=== PATIENT | male | born 1955 | race Caucasian/White ===

== ENCOUNTER 2017-06-01 19:11 | Inpatient (IN) | payer OTHER, BC ==
[2017-06-01] MEDS ORDERED: Sodium Chloride 0.9% 10 ML Syringe FLUSH PRN ×2 (19:49→22:04)
[2017-06-01] MEDS ORDERED: Ondansetron 4 MG/2 ML SDV IVPUSH ONE (19:50)
[2017-06-01] MEDS ORDERED: HYDROmorphone 0.5 MG/0.5 ML Syringe IVPUSH ONE (19:51)
[2017-06-01] MEDS ORDERED: Sodium Chloride 0.9% 1,000 ML IV SCH (20:00)
--- NOTE | 2017-06-01 20:06 | EDM.PDOC ---
<Laci Sims - Last Filed: 06/02/17 01:28> ED HPI GENERAL MEDICAL PROBLEM - General Chief Complaint: Upper Extremity Injury/Pain Stated Complaint: FELL POSSIBLE BROKEN RIBS SENT FROM [facility] Time Seen by Provider: 06/01/17 19:40 - Related Data Allergies Allergy/AdvReac Type Severity Reaction Status Date / Time No Known Allergies Allergy Verified 08/03/14 17:02 Home Meds: Home Meds Losartan/Hydrochlorothiazide [Losartan-HCTZ 50-12.5 MG] 1 tab PO DAILY 06/01/17 [History] atorvaSTATin [Lipitor] 10 mg PO DAILY 06/01/17 [History] Course - Vital Signs Last Recorded V/S: Last Vital Signs Temp 98.2 F 06/02/17 19:26 Pulse 77 06/02/17 19:26 Resp 18 06/02/17 19:26 BP 130/84 06/02/17 19:26 Pulse Ox 92 L 06/02/17 19:26 - Orders/Labs/Meds Orders: Active Orders 24 hr Category Date Time Status Admission Status [Patient Status] [ADT] Routine ADT 06/02/17 01:21 Active Peripheral IV Insertion Adult [OM.PC] Stat Oth 06/01/17 19:49 Ordered Medication Orders Cyclobenzaprine HCl (Flexeril) 10 mg PO TID PRN PRN Reason: Pain Last Admin: 06/02/17 12:10 Dose: 10 mg Admin: 06/02/17 05:59 Dose: 10 mg Hydrochlorothiazide (Hydrochlorothiazide) 12.5 mg PO DAILY MARY KATE Last Admin: 06/02/17 09:15 Dose: 12.5 mg Hydromorphone HCl (Dilaudid) 0.5 - 1 mg IVPUSH Q2H PRN PRN Reason: Pain Last Admin: 06/02/17 05:58 Dose: 0.5 mg Admin: 06/02/17 02:14 Dose: 1 mg Losartan Potassium (Cozaar) 50 mg PO DAILY MARY KATE Last Admin: 06/02/17 09:16 Dose: 50 mg Oxycodone/Acetaminophen (Percocet 325-5 Mg) 1 tab PO Q4H PRN PRN Reason: Pain Last Admin: 06/02/17 15:24 Dose: 1 tab Admin: 06/02/17 10:59 Dose: 1 tab Simvastatin (Zocor) 10 mg PO BEDTIME MARY KATE Sodium Chloride (Saline Flush) 10 ml FLUSH ASDIRECTED PRN PRN Reason: Keep Vein Open Labs: Laboratory Tests 06/01/17 06/01/17 06/01/17 Range/Units 20:06 20:06 20:06 WBC (4.23-9.07) K/mm3 RBC (4.63-6.08) M/mm3 Hgb (13.7-17.5) gm/L Hct (40.1-51.0) % MCV (79.0-92.2) fl MCH (25.7-32.2) pg MCHC (32.2-35.5) g/dl RDW Std Deviation (35.1-43.9) fL Plt Count (163-337) K/mm3 MPV (9.4-12.3) fl Neut % (Auto) (34.0-67.9) % Lymph % (Auto) (21.8-53.1) % [place] % (Auto) (5.3-12.2) % Eos % (Auto) (0.8-7.0) Baso % (Auto) (0.1-1.2) % Neut # (Auto) (1.78-5.38) K/mm3 Lymph # (Auto) (1.32-3.57) K/mm3 Lim[place] # (Auto) (0.30-0.82) K/mm3 Eos # (Auto) (0.04-0.54) K/mm3 Baso # (Auto) (0.01-0.08) K/mm3 Manual Slide Review PT 11.4 (8.0-13.0) SECONDS INR 1.04 APTT 26 (22-36) SECONDS Sodium 132 L (136-145) mEq/L Potassium 3.5 (3.5-5.1) mEq/L Chloride 99 (98-107) mEq/L Carbon Dioxide 24 (21-32) mEq/L Anion Gap 12.5 (5-15) BUN 16 (7-18) mg/dL Creatinine 1.0 (0.7-1.3) mg/dL Est Cr Clr Drug Dosing 73.44 mL/min Estimated GFR (MDRD) > 60 (>60) mL/min BUN/Creatinine Ratio 16.0 (14-18) Glucose 140 H (74-106) mg/dL Calcium 8.9 (8.5-10.1) mg/dL Total Bilirubin 0.5 (0.2-1.0) mg/dL AST 54 H (15-37) U/L ALT 60 (16-63) U/L Alkaline Phosphatase 86 (46-116) U/L Total Protein 7.0 (6.4-8.2) g/dl Albumin 3.8 (3.4-5.0) g/dl Globulin 3.2 gm/dL Albumin/Globulin Ratio 1.2 (1-2) Blood Type O NEGATIVE Gel Antibody Screen Negative 06/01/17 Range/Units 20:06 WBC 17.93 H (4.23-9.07) K/mm3 RBC 4.92 (4.63-6.08) M/mm3 Hgb 15.8 (13.7-17.5) gm/L Hct 46.5 (40.1-51.0) % MCV 94.5 H (79.0-92.2) fl MCH 32.1 (25.7-32.2) pg MCHC 34.0 (32.2-35.5) g/dl RDW Std Deviation 44.0 H (35.1-43.9) fL Plt Count 225 (163-337) K/mm3 MPV 10.0 (9.4-12.3) fl Neut % (Auto) 83.1 H (34.0-67.9) % Lymph % (Auto) 7.5 L (21.8-53.1) % Limestone % (Auto) 8.5 (5.3-12.2) % Eos % (Auto) 0.5 L (0.8-7.0) Baso % (Auto) 0.1 (0.1-1.2) % Neut # (Auto) 14.90 H (1.78-5.38) K/mm3 Lymph # (Auto) 1.34 (1.32-3.57) K/mm3 Limestone # (Auto) 1.53 H (0.30-0.82) K/mm3 Eos # (Auto) 0.09 (0.04-0.54) K/mm3 Baso # (Auto) 0.02 (0.01-0.08) K/mm3 Manual Slide Review Normal smear PT (8.0-13.0) SECONDS INR APTT (22-36) SECONDS Sodium (136-145) mEq/L Potassium (3.5-5.1) mEq/L Chloride (98-107) mEq/L Carbon Dioxide (21-32) mEq/L Anion Gap (5-15) BUN (7-18) mg/dL Creatinine (0.7-1.3) mg/dL Est Cr Clr Drug Dosing mL/min Estimated GFR (MDRD) (>60) mL/min BUN/Creatinine Ratio (14-18) Glucose (74-106) mg/dL Calcium (8.5-10.1) mg/dL Total Bilirubin (0.2-1.0) mg/dL AST (15-37) U/L ALT (16-63) U/L Alkaline Phosphatase (46-116) U/L Total Protein (6.4-8.2) g/dl Albumin (3.4-5.0) g/dl Globulin gm/dL Albumin/Globulin Ratio (1-2) Blood Type Gel Antibody Screen Meds: Medications Generic Name Dose Route Start Last Admin Trade Name Freq PRN Reason Stop Dose Admin Cyclobenzaprine HCl 10 mg 06/02/17 01:54 06/02/17 12:10 Flexeril PO 10 mg TID PRN Administration Pain Hydrochlorothiazide 12.5 mg 06/02/17 09:00 06/02/17 09:15 Hydrochlorothiazide PO 12.5 mg DAILY MARY KATE Administration Hydromorphone HCl 0.5 - 1 mg 06/02/17 01:51 06/02/17 05:58 Dilaudid IVPUSH 0.5 mg Q2H PRN Administration Pain Losartan Potassium 50 mg 06/02/17 09:00 06/02/17 09:16 Cozaar PO 50 mg DAILY MARY KATE Administration Oxycodone/Acetaminophen 1 tab 06/02/17 07:55 06/02/17 15:24 Percocet 325-5 Mg PO 1 tab Q4H PRN Administration Pain Simvastatin 10 mg 06/02/17 21:00 Zocor PO BEDTIME MARY KATE Sodium Chloride 10 ml 06/02/17 07:54 Saline Flush FLUSH ASDIRECTED PRN Keep Vein Open Discontinued Medications Generic Name Dose Route Start Last Admin Trade Name Freq PRN Reason Stop Dose Admin Hydromorphone HCl 0.5 mg 06/01/17 19:51 06/01/17 20:03 Dilaudid IVPUSH 06/01/17 19:52 0.5 mg ONETIME ONE Administration Hydromorphone HCl 0.5 mg 06/01/17 23:10 06/01/17 23:16 Dilaudid IVPUSH 06/01/17 23:11 0.5 mg NOW STA Administration Hydromorphone HCl Confirm 06/01/17 23:17 06/01/17 23:16 Dilaudid Administered 06/01/17 23:18 Not Given Dose 0.5 mg .ROUTE .STK-MED ONE Hydromorphone HCl Confirm 06/02/17 02:05 06/02/17 05:53 Dilaudid Administered 06/02/17 02:06 Not Given Dose 1 mg .ROUTE .STK-MED ONE Sodium Chloride 1,000 mls @ 250 mls/hr 06/01/17 20:00 06/01/17 20:04 Normal Saline IV 250 mls/hr ASDIRECTED MARY KATE Administration Sodium Chloride 100 mls @ 65 mls/hr 06/01/17 22:15 06/01/17 22:15 Normal Saline IV 65 mls/hr ASDIRECTED MARY KATE Administration Sodium Chloride 1,000 mls @ 40 mls/hr 06/02/17 02:00 06/02/17 02:30 Normal Saline IV 40 mls/hr ASDIRECTED MARY KATE Administration Iopamidol 100 ml 06/01/17 22:04 06/01/17 22:15 Isovue-370 (76%) IVPUSH 06/01/17 22:05 100 ml ONETIME ONE Administration Iopamidol 100 ml 06/02/17 01:23 06/02/17 01:24 Isovue-300 (61%) IVPUSH 06/02/17 01:24 100 ml ONETIME ONE Administration Ondansetron HCl 4 mg 06/01/17 19:50 06/01/17 20:03 Zofran IVPUSH 06/01/17 19:51 4 mg ONETIME ONE Administration Sodium Chloride 10 ml 06/01/17 19:49 06/01/17 20:03 Saline Flush FLUSH 10 ml ASDIRECTED PRN Administration Keep Vein Open Sodium Chloride 10 ml 06/01/17 22:04 06/01/17 22:15 Saline Flush FLUSH 10 ml ONETIME PRN Administration IV FLUSH - Re-Assessments/Exams Free Text/Narrative Re-Assessment/Exam: 06/02/17 01:20 Case seemed from [facility]. CT of the abdomen and pelvis with IV contrast is read by [facility] as: 1. Right adrenal soft tissue mass 3.4 x 2.9 cm is most likely malignant. 2. 1.5 cm aortocaval lymph node, suspicious for malignancy. 3. No sign of solid or hollow visceral injury. 06/02/17 01:[address] Herrera at 01:25. We will proceed with the previous plan of admitting the patient for pain control, and Dr. Herrera will see the patient in the morning. Dr. Herrera will inform the patient of the likelihood of malignancy in the morning. Departure - Departure Disposition: Admitted As Inpatient 67 Clinical Impression: Multiple rib fractures involving four or more ribs, Pneumothorax on right - Discharge Information - My Orders Last 24 Hours: My Active Orders 06/01/17 19:49 Peripheral IV Insertion Adult [OM.PC] Stat 06/02/17 01:21 Admission Status [Patient Status] [ADT] Routine - Assessment/Plan Last 24 Hours: My Active Orders 06/01/17 19:49 Peripheral IV Insertion Adult [OM.PC] Stat 06/02/17 01:21 Admission Status [Patient Status] [ADT] Routine <WatersPaul O - Last Filed: 06/02/17 20:45> ED HPI GENERAL MEDICAL PROBLEM - General Source of Information: Reports: Patient History Limitations: Reports: No Limitations - History of Present Illness INITIAL COMMENTS - FREE TEXT/NARRATIVE: Patient is a 61-year-old male who presents to the ED complaining of right-sided upper thoracic back and lateral chest discomfort. He also has pain and swelling noted to the right clavicle. States he fell at approximately 2:00 pm today off a 4 foot trailer landing on his right side. There was no loss of consciousness. States he went to a local clinic in [place] for evaluation. Had x-ray of his clavicle and ribs obtained. States he has a right-sided clavicle fracture and also 7 rib fractures on the right side as well. He was instructed to come to the ED to have his lungs evaluated with concerns of having a pneumothorax. Patient continues have 10 out of 10 pain to his right upper back and lateral chest. He has taken ibuprofen 400 mg by mouth. He denies any pain along the spinal column. No numbness or tingling to his extremities, SOB, nausea/vomiting , abdominal pain, or any additional complaints. Right Back Pain Score (Numeric/FACES): 3 Past Medical History Cardiovascular History: Reports: High Cholesterol, Hypertension Social & Family History - Tobacco Use Smoking Status *Q: Current Every Day Smoker Years of Tobacco use: 25 Packs/Tins Daily: 0.5 - Caffeine Use Caffeine Use: Reports: Coffee, Tea - Alcohol Use Days Per Week of Alcohol Use: 0 - Recreational Drug Use Recreational Drug Use: No Review of Systems - Review of Systems Review Of Systems: ROS reveals no pertinent complaints other than HPI. ED EXAM, GENERAL - Physical Exam Exam: See Below Exam Limited By: No Limitations General Appearance: Alert, WD/WN, Moderate Distress (With movement and examination) Eye Exam: Bilateral Eye: PERRL Ears: Hearing Grossly Normal Nose: Normal Inspection, Normal Mucosa, No Blood Throat/Mouth: Normal Inspection, Normal Oropharynx, Normal Voice, No Airway Compromise Head: Atraumatic, Normocephalic Neck: Supple, Full Range of Motion, Other (Mild swelling noted to the base of the right neck with pinpoint tenderness noted. Chest just above the clavicle. Pulses are present with palpation. No ecchymosis noted.). No: Tender Lateral, Tender Midline Respiratory/Chest: No Respiratory Distress, Lungs Clear, Normal Breath Sounds, No Accessory Muscle Use, Other (Chest tenderness to the lateral aspect of the right chest with palpation.) Cardiovascular: Normal Peripheral Pulses, Regular Rate, Rhythm, No Murmur Peripheral Pulses: 2+: Radial (L), Radial (R) GI/Abdominal: Normal Bowel Sounds, Soft, Non-Tender, No Organomegaly, No Distention Back Exam: Normal Inspection, Decreased Range of Motion, Other (Pain is noted just to the inferior border of the). No: Paraspinal Tenderness (Pain is noted to the right lateral thoracic back.), Vertebral Tenderness Extremities: Normal Inspection, Normal Range of Motion, Non-Tender, No Pedal Edema, Normal Capillary Refill Neurological: Alert, Oriented, CN II-XII Intact, Normal Cognition, Normal Gait Psychiatric: Normal Affect, Normal Mood Skin Exam: Warm, Dry, Intact, Normal Color Course - Orders/Labs/Meds Labs: Laboratory Tests 06/01/17 06/01/17 06/01/17 Range/Units 20:06 20:06 20:06 WBC (4.23-9.07) K/mm3 RBC (4.63-6.08) M/mm3 Hgb (13.7-17.5) gm/L Hct (40.1-51.0) % MCV (79.0-92.2) fl MCH (25.7-32.2) pg MCHC (32.2-35.5) g/dl RDW Std Deviation (35.1-43.9) fL Plt Count (163-337) K/mm3 MPV (9.4-12.3) fl Neut % (Auto) (34.0-67.9) % Lymph % (Auto) (21.8-53.1) % [place]estone % (Auto) (5.3-12.2) % Eos % (Auto) (0.8-7.0) Baso % (Auto) (0.1-1.2) % Neut # (Auto) (1.78-5.38) K/mm3 Lymph # (Auto) (1.32-3.57) K/mm3 Limestone # (Auto) (0.30-0.82) K/mm3 Eos # (Auto) (0.04-0.54) K/mm3 Baso # (Auto) (0.01-0.08) K/mm3 Manual Slide Review PT 11.4 (8.0-13.0) SECONDS INR 1.04 APTT 26 (22-36) SECONDS Sodium 132 L (136-145) mEq/L Potassium 3.5 (3.5-5.1) mEq/L Chloride 99 (98-107) mEq/L Carbon Dioxide 24 (21-32) mEq/L Anion Gap 12.5 (5-15) BUN 16 (7-18) mg/dL Creatinine 1.0 (0.7-1.3) mg/dL Est Cr Clr Drug Dosing 73.44 mL/min Estimated GFR (MDRD) > 60 (>60) mL/min BUN/Creatinine Ratio 16.0 (14-18) Glucose 140 H (74-106) mg/dL Calcium 8.9 (8.5-10.1) mg/dL Total Bilirubin 0.5 (0.2-1.0) mg/dL AST 54 H (15-37) U/L ALT 60 (16-63) U/L Alkaline Phosphatase 86 (46-116) U/L Total Protein 7.0 (6.4-8.2) g/dl Albumin 3.8 (3.4-5.0) g/dl Globulin 3.2 gm/dL Albumin/Globulin Ratio 1.2 (1-2) Blood Type O NEGATIVE Gel Antibody Screen Negative 06/01/17 Range/Units 20:06 WBC 17.93 H (4.23-9.07) K/mm3 RBC 4.92 (4.63-6.08) M/mm3 Hgb 15.8 (13.7-17.5) gm/L Hct 46.5 (40.1-51.0) % MCV 94.5 H (79.0-92.2) fl MCH 32.1 (25.7-32.2) pg MCHC 34.0 (32.2-35.5) g/dl RDW Std Deviation 44.0 H (35.1-43.9) fL Plt Count 225 (163-337) K/mm3 MPV 10.0 (9.4-12.3) fl Neut % (Auto) 83.1 H (34.0-67.9) % Lymph % (Auto) 7.5 L (21.8-53.1) % Limestone % (Auto) 8.5 (5.3-12.2) % Eos % (Auto) 0.5 L (0.8-7.0) Baso % (Auto) 0.1 (0.1-1.2) % Neut # (Auto) 14.90 H (1.78-5.38) K/mm3 Lymph # (Auto) 1.34 (1.32-3.57) K/mm3 Limestone # (Auto) 1.53 H (0.30-0.82) K/mm3 Eos # (Auto) 0.09 (0.04-0.54) K/mm3 Baso # (Auto) 0.02 (0.01-0.08) K/mm3 Manual Slide Review Normal smear PT (8.0-13.0) SECONDS INR APTT (22-36) SECONDS Sodium (136-145) mEq/L Potassium (3.5-5.1) mEq/L Chloride (98-107) mEq/L Carbon Dioxide (21-32) mEq/L Anion Gap (5-15) BUN (7-18) mg/dL Creatinine (0.7-1.3) mg/dL Est Cr Clr Drug Dosing mL/min Estimated GFR (MDRD) (>60) mL/min BUN/Creatinine Ratio (14-18) Glucose (74-106) mg/dL Calcium (8.5-10.1) mg/dL Total Bilirubin (0.2-1.0) mg/dL AST (15-37) U/L ALT (16-63) U/L Alkaline Phosphatase (46-116) U/L Total Protein (6.4-8.2) g/dl Albumin (3.4-5.0) g/dl Globulin gm/dL Albumin/Globulin Ratio (1-2) Blood Type Gel Antibody Screen - Re-Assessments/Exams Free Text/Narrative Re-Assessment/Exam: IV established with blood work obtained. IV established with normal saline, Dilaudid 0.5 mg IVP, and Zofran 4 mg IVP. Initial labs and studies include CBC, chem 14, coag status, type and screen, and CT angio of the chest and neck. Labs reviewed: Elevated white blood cell count with left shift most likely as a result of stress response with recent fall and rib fractures. Patient does not have any obvious infectious concerns at this point. She panel is mildly elevated with minimal increase in AST. [id number] [facility] Has contacted me and shared results of the CT of the chest with IV contrast. Impression: 1.3 cm right pneumothorax. Nondisplaced fracture of the right first, second, third, fourth ribs. Nondisplaced left first rib fracture also. Minimally displaced superior endplate fractures at T3 and T4. Right suprarenal mass like area measuring up to 3.4 cm with some adjacent stranding of fat. This could be hematoma and/or metastases. CTA of the neck: Negative CTA neck. Shared results of the CT of the chest with the patient. He denies any history of cancer. States his PSA is elevated and is suppose to have further evaluation this coming June. States his mom from some form of abdominal cancer. On reexamination, patient has no pain to the abdomen. [id number] of the chest with Dr. Herrera on-call general surgeon. He requested CT the abdomen and pelvis be obtained to ensure the mass to the the kidney that may be a hematoma is not actively bleeding. Spoke with radiology and they state they cannot give the patient any more IV contrast this evening. If he did it would be an inadequate test with all the contrast at already present. Edy suggested obtaining a CT of the abdomen and pelvis without contrast. If a hematoma and/or active bleeding within the abdomen should light up with the contrast already present. CT the abdomen and pelvis without IV contrast has been ordered. 1113 Patient is complaining of pain. Additional 0.5 mg of Dilaudid IVP ordered. 06/02/17 00:28 Due to the delay of obtaining CT of the abdomen and pelvis wo contrast in a timely manner due to another patient needing CT studies. Edy with radiology believes the contrast previously administered will be inaffective at this point. States he can inject contrast again. Will procede will CT of the abdomen and pelvis with IV contrast. 06/02/17 00:[address] Sims he will be taking over care since it is my end of shift. Bridge orders per Dr. Bosch have been completed. He will be notified of the results of CT abdomen and pelvis prior to admission. Departure - Departure Time of Disposition: 01:21 Condition: Fair
[2017-06-01] MEDS ORDERED: Iopamidol 755 Mg/ML 100 ML Bottle IVPUSH ONE (22:04)
[2017-06-01] MEDS ORDERED: Sodium Chloride 0.9% 100 ML IV SCH (22:15)
[2017-06-01] MEDS ORDERED: HYDROmorphone 0.5 MG/0.5 ML Syringe IVPUSH STA (23:10)
[2017-06-01] MEDS ORDERED: HYDROmorphone 0.5 MG/0.5 ML Syringe ONE (23:17)
[2017-06-02] MEDS ORDERED: Iopamidol 612 MG/ML 100 ML Bottle IVPUSH ONE (01:23)
[2017-06-02] MEDS ORDERED: Sodium Chloride 0.9% 1,000 ML IV SCH (02:00)
[2017-06-02] MEDS ORDERED: HYDROmorphone 1 MG/ML Syringe ONE (02:05)
[2017-06-02] MEDS: HYDROmorphone 0.5 MG/0.5 ML Syringe IVPUSH PRN ×2 (02:14→05:58)
[2017-06-02] MEDS: Cyclobenzaprine 10 MG Tab PO PRN ×2 (05:59→12:10)
--- NOTE | 2017-06-02 07:07 | CT ---
CT chest Technique: Multiple axial sections were obtained from above the lung apices inferiorly through the lung bases. Intravenous contrast was utilized. Comparison: No previous chest imaging. Findings: Mediastinum and hilar regions appear within normal limits. No pericardial thickening is seen. No axillary adenopathy is seen. Small pneumothorax is identified anteriorly. Small pleural air collections are also seen posteriorly. Pneumothorax measures less than 10%. Mild dependent atelectasis is seen posteriorly within both lungs. Lungs otherwise are clear. Bone window settings were reviewed which show subacute and incompletely healed rib fractures within the seventh and eighth ribs on the right side. Acute and basically nondisplaced rib fractures are seen within the right first, second, third, fourth rib and fifth ribs. Minimal deformity felt compatible with a nondisplaced fracture also seen within the left first rib. Mild endplate compression deformities are seen superiorly within T3 and T4 which are felt to be acute. No abnormal subluxation is seen. Right adrenal mass is seen which will be described on subsequent CT abdomen and pelvis study. Impression: 1. Acute fractures within the first through fifth right ribs and first left rib. Subacute nonhealed fractures are seen within the right seventh and eighth ribs. 2. Small pneumothorax on the right side. 3. Minimal superior endplate compression deformities within T3 and T4. Diagnostic code #5 Agree with preliminary report issued by [facility] ([facility] preliminary report dictated on 06/01/17, 11:31 PM Central Time)
--- NOTE | 2017-06-02 07:14 | CT ---
CT neck Technique: Multiple axial sections through the neck were obtained. Intravenous contrast was utilized. Study was performed as a CT neck angiogram protocol. Multiple MIP images were obtained. Findings: Minimal calcified plaque is seen within the carotid bulb and proximal internal carotid arteries. Common carotid arteries are patent. No dissection or occlusion is seen. No stenosis is seen. Internal and visualized external carotid arteries: No dissection or occlusion is seen. Vertebral arteries: No dissection or stenosis is seen. Patency into the basilar artery is noted. Visualized sinuses are clear. Parotid salivary glands are within normal limits. Soft tissue swelling/hematoma noted anteriorly within the region around the clavicle. Nondisplaced fracture noted within the right clavicle in this region. Diffuse disc space narrowing as well as posterior and anterior osteophytes are seen within the cervical spine. Impression: 1. Nondisplaced right clavicle fracture with adjacent soft tissue swelling/hematoma. 2. Minimal calcified plaque within the carotid bulbs and proximal internal carotid arteries. 3. Other incidental findings as noted above. Diagnostic code #3 Agree with preliminary report issued by [facility] ([facility] preliminary report dictated on 06/01/17, 11:31 PM Central Time)
--- NOTE | 2017-06-02 07:22 | CT ---
CT abdomen and pelvis Technique: Multiple axial sections were obtained from above the dome of the diaphragm inferiorly to the pubic symphysis. Intravenous contrast was utilized. Delayed images were also obtained through the abdomen and pelvis. Findings: Small low-density finding is identified within the dome of the liver which is felt compatible with incidental cyst measuring about 8 mm. No additional abnormality is seen within the liver. Spleen appears within normal limits. Kidneys show symmetric contrast enhancement without hydronephrosis or mass. No renal laceration is seen. Delayed images show contrast excretion into the ureters and bladder without extravasation. Right adrenal mass is identified. This measures about 3.0 cm in size and shows surrounding inflammatory-type change. Findings most likely due to adrenal hemorrhage. Left adrenal gland is unremarkable. Pancreas is normal. Gallbladder shows no calcified gallstones. Aorta contains atherosclerotic plaque which continues into the iliac vessels. No aneurysm is identified. Small lymph node is seen within the retroperitoneum measuring about 1.5 cm which is likely incidental. No pelvic mass or adenopathy is seen. Bone window settings show scattered degenerative change within the spine. Impression: 1. Right adrenal mass with surrounding increased density. Findings most likely due to adrenal hemorrhage. Adrenal malignancy is within the differential. MRI could be considered which should show changes of hemorrhage if first etiology is correct. 2. Small retroperitoneal lymph node measuring within normal limits at this time. 3. Other incidental findings. Diagnostic code #5 Agree with preliminary report issued by [facility] ([facility] preliminary report dictated on 06/02/17, 1:59 AM Central Time)
[2017-06-02] MEDS ORDERED: Sodium Chloride 0.9% 10 ML Syringe FLUSH PRN (07:54)
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
--- NOTE | 2017-06-02 09:08 | CR ---
Chest: Two views of the chest are obtained. Comparison: No prior chest x-ray, prior chest CT dated 06/01/17. Heart size and mediastinum are within normal limits. Right-sided rib fractures are seen which appear acute within the right upper chest and subacute with callus within the right lower chest. Heart size and mediastinum are normal. Previous shoulder surgery is seen. Nondisplaced right clavicle fracture is noted. Minimal anterior wedging is seen within several upper thoracic vertebral bodies which is stable. Impression: 1. Right-sided rib fractures as described above. No pneumothorax is definitely appreciated on current study. 2. Right clavicle fracture and 2 minimal anterior wedge deformities within the upper thoracic spine. 3. No acute parenchymal densities are seen. Diagnostic code #3
[2017-06-02] MEDS: Hydrochlorothiazide 12.5 MG Cap PO SCH (09:15)
[2017-06-02] MEDS: Losartan 25 MG Tab PO SCH (09:16)
[2017-06-02] MEDS: Acetaminophen/oxyCODONE 325-5 MG Tab PO PRN ×3 (10:59→21:05)
[2017-06-02] MEDS ORDERED: Simvastatin 10 MG Tab PO SCH (21:00)
[2017-06-03] MEDS: Acetaminophen/oxyCODONE 325-5 MG Tab PO PRN ×3 (02:40→11:51)
[2017-06-03] MEDS ORDERED: Magnesium Citrate Solution 296 ML Bottle PO ONE (07:24)
--- NOTE | 2017-06-03 07:31 | PCM.PN ---
- General Info Date of Service: 06/03/17 Functional Status: Reports: Pain Controlled, Tolerating Diet, Ambulating, Urinating - Review of Systems Pulmonary: Reports: Pleuritic Chest Pain, Other (Complains of right chest wall pain with coughing and deep breathing and movement) - Patient Data Vitals - Most Recent: Last Vital Signs Temp 36.8 C 06/03/17 02:42 Pulse 82 06/03/17 02:42 Resp 18 06/03/17 02:42 BP 106/91 H 06/03/17 02:43 Pulse Ox 95 06/03/17 02:42 Weight - Most Recent: 73.981 kg I&O - Last 24 Hours: Intake & Output 06/02/17 06/03/17 06/03/17 22:59 06:59 14:59 Intake Total 800 400 Output Total 500 600 Balance 300 -200 Med Orders - Current: Current Medications Cyclobenzaprine HCl (Flexeril) 10 mg PO TID PRN PRN Reason: Pain Last Admin: 06/02/17 12:10 Dose: 10 mg Hydrochlorothiazide (Hydrochlorothiazide) 12.5 mg PO DAILY [facility] Last Admin: 06/02/17 09:15 Dose: 12.5 mg Hydromorphone HCl (Dilaudid) 0.5 - 1 mg IVPUSH Q2H PRN PRN Reason: Pain Last Admin: 06/02/17 05:58 Dose: 0.5 mg Losartan Potassium (Cozaar) 50 mg PO DAILY [facility] Last Admin: 06/02/17 09:16 Dose: 50 mg Magnesium Citrate (Citrate Of Magnesia) 0 ml PO ONETIME ONE Stop: 06/03/17 07:25 Oxycodone/Acetaminophen (Percocet 325-5 Mg) 1 tab PO Q4H PRN PRN Reason: Pain Last Admin: 06/03/17 02:40 Dose: 1 tab Simvastatin (Zocor) 10 mg PO BEDTIME [facility] Last Admin: 06/02/17 21:04 Dose: 10 mg Sodium Chloride (Saline Flush) 10 ml FLUSH ASDIRECTED PRN PRN Reason: Keep Vein Open Discontinued Medications Hydromorphone HCl (Dilaudid) 0.5 mg IVPUSH ONETIME ONE Stop: 06/01/17 19:52 Last Admin: 06/01/17 20:03 Dose: 0.5 mg Hydromorphone HCl (Dilaudid) 0.5 mg IVPUSH NOW STA Stop: 06/01/17 23:11 Last Admin: 06/01/17 23:16 Dose: 0.5 mg Hydromorphone HCl (Dilaudid) Confirm Administered Dose 0.5 mg .ROUTE .STK-MED ONE Stop: 06/01/17 23:18 Last Admin: 06/01/17 23:16 Dose: Not Given Hydromorphone HCl (Dilaudid) Confirm Administered Dose 1 mg .ROUTE .STK-MED ONE Stop: 06/02/17 02:06 Last Admin: 06/02/17 05:53 Dose: Not Given Sodium Chloride (Normal Saline) 1,000 mls @ 250 mls/hr IV ASDIRECTED [facility] Last Admin: 06/01/17 20:04 Dose: 250 mls/hr Sodium Chloride (Normal Saline) 100 mls @ 65 mls/hr IV ASDIRECTED [facility] Last Admin: 06/01/17 22:15 Dose: 65 mls/hr Sodium Chloride (Normal Saline) 1,000 mls @ 40 mls/hr IV ASDIRECTED [facility] Last Admin: 06/02/17 02:30 Dose: 40 mls/hr Iopamidol (Isovue-370 (76%)) 100 ml IVPUSH ONETIME ONE Stop: 06/01/17 22:05 Last Admin: 06/01/17 22:15 Dose: 100 ml Iopamidol (Isovue-300 (61%)) 100 ml IVPUSH ONETIME ONE Stop: 06/02/17 01:24 Last Admin: 06/02/17 01:24 Dose: 100 ml Ondansetron HCl (Zofran) 4 mg IVPUSH ONETIME ONE Stop: 06/01/17 19:51 Last Admin: 06/01/17 20:03 Dose: 4 mg Sodium Chloride (Saline Flush) 10 ml FLUSH ASDIRECTED PRN PRN Reason: Keep Vein Open Last Admin: 06/01/17 20:03 Dose: 10 ml Sodium Chloride (Saline Flush) 10 ml FLUSH ONETIME PRN PRN Reason: IV FLUSH Last Admin: 06/01/17 22:15 Dose: 10 ml - Exam General: Alert, Oriented, Cooperative GI/Abdominal Exam: Soft, Non-Tender - Problem List & Annotations (1) Adrenal incidentaloma SNOMED Code(s): 378952774 Code(s): E27.8 - OTHER SPECIFIED DISORDERS OF ADRENAL GLAND Status: Chronic Priority: Low Current Visit: Yes Annotation/Comment:: Perhaps hemorrhagic. Functional status unknown at this time. This will need to be evaluated. (2) Compression fracture SNOMED Code(s): 647576520 Code(s): SDH0824 - Status: Acute Priority: Low Current Visit: Yes (3) Localized soft tissue swelling SNOMED Code(s): 374714262 Code(s): R22.9 - LOCALIZED SWELLING, MASS AND LUMP, UNSPECIFIED Status: Acute Priority: Low Current Visit: Yes (4) Multiple rib fractures involving four or more ribs SNOMED Code(s): 8525655 Code(s): S22.49XA - MULTIPLE FRACTURES OF RIBS, UNSP SIDE, INIT FOR CLOS FX Status: Acute Priority: Medium Current Visit: Yes (5) Pneumothorax on right SNOMED Code(s): 992038995 Code(s): J93.9 - PNEUMOTHORAX, UNSPECIFIED Status: Acute Priority: Low Current Visit: Yes - Problem List Review Problem List Initiated/Reviewed/Updated: Yes - My Orders Last 24 Hours: My Active Orders 06/02/17 07:54 Sodium Chloride 0.9% [Saline Flush] 10 ml FLUSH ASDIRECTED PRN Convert IV to Saline Lock [OM.PC] Routine 06/02/17 07:55 Incentive Spirometry [RT Incentive Spirometry] [RC] ASDIRECTED Acetaminophen/oxyCODONE [Percocet 325-5 MG] 1 tab PO Q4H PRN 06/02/17 07:57 Oxygen Therapy [RC] CONTINUOUS 06/02/17 07:58 Activity as Tolerated [RC] .Routine PT Evaluation and Treatment [CONS] Routine 06/02/17 07:59 Antiembolic Devices [RC] QSHIFT May Shower [RC] ASDIRECTED ALF Hose [Antiembolic Hose] [OM.PC] Routine 06/02/17 08:00 Assess Discharge Needs [OM.PC] Routine 06/02/17 09:00 Hydrochlorothiazide 12.5 mg PO DAILY Hydrochlorothiazide 12.5 mg PO DAILY Losartan [Cozaar] 50 mg PO DAILY 06/02/17 21:00 Simvastatin [Zocor] 10 mg PO BEDTIME 06/02/17 Lunch Regular Diet [DIET] 06/03/17 07:05 ALDOSTERONE [REF] Routine 06/03/17 07:06 ACTH [REF] Routine CORTISOL [REF] Routine 06/03/17 07:07 METANEPHRINES, PLASMA FREE [REF] Routine 06/03/17 07:24 Magnesium Citrate [Citrate of Magnesia] See Dose Instructions PO ONETIME ONE - Assessment Assessment:: Pain management was satisfactorily with Percocet. Stable vital signs. Chest x- ray stable. Hemoglobin is stable as well. Patient satisfies discharge criteria. - Plan Plan:: Discharge today. Follow-up with Dr. Salguero and follow-up with Dr. Rose. He can follow-up with me when necessary for the rib fractures. Serum aldosterone, ACTH, serum cortisol and serum metanephrines ordered. Patient will need follow-up CT scan for the adrenal incidentaloma in 6 months.
[2017-06-03] MEDS: HYDROmorphone 0.5 MG/0.5 ML Syringe IVPUSH PRN (07:42)
[2017-06-03] MEDS: Cyclobenzaprine 10 MG Tab PO PRN (07:44)
[2017-06-03] MEDS: Losartan 25 MG Tab PO SCH (08:50)
[2017-06-03 08:51] VITALS: BP 122/85
[2017-06-03] MEDS: Hydrochlorothiazide 12.5 MG Cap PO SCH (08:51)
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
== END 2017-06-03 12:05 | disposition home or self-care (01) | DRG 200 ==
LOC: SUPCPDRO 19:11 → JD.ED 19:11 → JD.MS 06-02 01:22
PROVIDERS: ADMIT Surgery; ATTEND Surgery
DX: S27.0XXA Traumatic pneumothorax, initial encounter (principal); S22.41XA Multiple fractures of ribs, right side, initial encounter for closed fracture; S22.039A Unspecified fracture of third thoracic vertebra, initial encounter for closed fracture; S22.049A Unspecified fracture of fourth thoracic vertebra, initial encounter for closed fracture; E27.8 Other specified disorders of adrenal gland; R22.9 Localized swelling, mass and lump, unspecified; W17.89XA Other fall from one level to another, initial encounter; I10 Essential (primary) hypertension; E78.00 Pure hypercholesterolemia, unspecified; Z96.659 Presence of unspecified artificial knee joint; Z96.619 Presence of unspecified artificial shoulder joint; F17.210 Nicotine dependence, cigarettes, uncomplicated; Z79.899 Other long term (current) drug therapy
CPT/HCPCS: 36415; 70498; 70498-26; 71020; 71020-26; 71260; 71260-26; 74177; 74177-26; 80053; 82024; 82088; 82533; 83835; 85025; 85610; 85730; 86850; 86900; 86901; 96361; 96374; 96375; 96376; 97116-GP; 97162-GP; 97530-GP; 99284; 99285-25; A9270-GY; J1170; J2405; J7030; J7040; J7050; Q9967

== ENCOUNTER 2017-06-10 21:51 | Emergency (ER) | payer BC, OTHER ==
[2017-06-10 22:07] VITALS: BP 116/75
--- NOTE | 2017-06-10 22:30 | EDM.PDOC ---
ED HPI GENERAL MEDICAL PROBLEM - General Chief Complaint: Upper Extremity Injury/Pain Stated Complaint: POSS SHOULDER INJURY Time Seen by Provider: 06/10/17 22:07 Source of Information: Reports: Patient History Limitations: Reports: No Limitations - History of Present Illness INITIAL COMMENTS - FREE TEXT/NARRATIVE: This is a 61-year-old male. He was seen in the ER on the sixth due to a fall. He had rib fractures on the right 1 through 5 and rib fracture on the left #1 he also had compression fractures of T3 and T4 with anterior wedging. He had a less than 10% pneumothorax on the right. He also had a right clavicle fracture. He was also noted to have a right adrenal mass for maybe to be due to hemorrhage. He saw Dr. Powell today and doesn't really tell me much about what was said or how long it would take him to heal. He has been trying to use that right arm and says it kills his shoulder when he tries to use it. He now has a bunch of bruising and various shades of discoloration around the right clavicle and the right upper chest area. I explained to the patient that he has fractured his clavicle and any movement of that right arm is going to cause severe pain and limit his movement. He apparently is supposed to be in a sling but he has not been wearing it. He says his ribs are feeling better and he seems to be breathing okay. He comes back to the ER because of the right shoulder pain. He states he took a Percocet but it isn't really helping. Right Shoulder Pain Score (Numeric/FACES): 10 - Related Data Allergies Allergy/AdvReac Type Severity Reaction Status Date / Time No Known Allergies Allergy Verified 08/03/14 17:02 Home Meds: Home Meds Losartan/Hydrochlorothiazide [Losartan-HCTZ 50-12.5 MG] 1 tab PO DAILY 06/01/17 [History] atorvaSTATin [Lipitor] 10 mg PO DAILY 06/01/17 [History] oxyCODONE HCl/Acetaminophen [Percocet 5-325 mg Tablet] 1 - 2 each PO Q6HR PRN [History] Past Medical History Cardiovascular History: Reports: High Cholesterol, Hypertension Musculoskeletal History: Reports: Other (See Below) Other Musculoskeletal History: left acl repair; fractured collar bone and ribs on the right side - Infectious Disease History Infectious Disease History: Reports: Chicken Pox - Past Surgical History HEENT Surgical History: Reports: Tonsillectomy GI Surgical History: Reports: Appendectomy Musculoskeletal Surgical History: Reports: Knee Replacement, Shoulder Replacement, Shoulder Surgery Other Musculoskeletal Surgeries/Procedures:: R shoulder 2012, L shoulder 2016, LTK-2015 Social & Family History - Family History Family Medical History: Noncontributory - Tobacco Use Smoking Status *Q: Current Every Day Smoker Years of Tobacco use: 20 Packs/Tins Daily: 10 Used Tobacco, but Quit: Yes Month Tobacco Last Used: 06/12 Second Hand Smoke Exposure: No - Caffeine Use Caffeine Use: Reports: Coffee - Alcohol Use Days Per Week of Alcohol Use: 0 Number of Drinks Per Day: 0 Total Drinks Per Week: 0 - Recreational Drug Use Recreational Drug Use: No Review of Systems - Review of Systems Review Of Systems: See Below Constitutional: Denies: Chills, Fever Eyes: Reports: No Symptoms Ears: Reports: No Symptoms Nose: Reports: No Symptoms Mouth/Throat: Reports: No Symptoms Respiratory: Reports: Pleuritic Chest Pain Cardiovascular: Reports: No Symptoms GI/Abdominal: Reports: No Symptoms Genitourinary: Reports: No Symptoms Musculoskeletal: Reports: Other (As per history of present illness) Skin: Reports: Other (As per history of present illness) Neurological: Reports: No Symptoms Psychiatric: Reports: No Symptoms ED EXAM, GENERAL - Physical Exam Exam: See Below Exam Limited By: No Limitations General Appearance: Alert, WD/WN, No Apparent Distress Eye Exam: Bilateral Eye: Normal Inspection Ears: Normal External Exam Nose: Normal Inspection Throat/Mouth: Normal Inspection, Normal Lips, Normal Voice, No Airway Compromise Head: Normocephalic Neck: Supple Respiratory/Chest: No Respiratory Distress, Lungs Clear, Other (He appears to have equal breath sounds in the right and left and does not appear to be splinting, his right clavicle is very tender, he has obvious bruising around the clavicle and the right upper chest area, palpation of his ribs they are bull ladle tender) Cardiovascular: Regular Rate, Rhythm, No Murmur GI/Abdominal: Soft Back Exam: Normal Inspection Extremities: Other (Right shoulder has limited range of motion due to the clavicle pain, the right shoulder appears to be in the glenoid fossa, I did not put him through the range of motion due to the pain) Neurological: Alert, Oriented Psychiatric: Normal Affect, Normal Mood Skin Exam: Warm, Dry Course - Vital Signs Last Recorded V/S: Last Vital Signs Temp 98.3 F 06/10/17 22:05 Pulse 80 06/10/17 22:05 Resp 20 06/10/17 22:05 BP 116/75 06/10/17 22:05 Pulse Ox 95 06/10/17 22:05 - Orders/Labs/Meds Orders: Active Orders 24 hr Category Date Time Status Communication Order [RC] STAT Care 06/10/17 22:58 Ordered Chest 2V [CR] Stat Exams 06/10/17 22:23 Taken Shoulder Comp Rt [CR] Stat Exams 06/10/17 22:24 Taken - Radiology Interpretation Free Text/Narrative:: Chest x-ray does not show any increasing pneumothorax, he does have a mild pleural effusion in the right base of the long but the rest of the lungs look fairly clear, seen R some rib fractures and the right clavicle fracture that was seen last time as well, the right shoulder does not show any humerus or glenoid fossa fractures he does have that right clavicle fracture that is overriding shaft in the middle. - Re-Assessments/Exams Free Text/Narrative Re-Assessment/Exam: 06/10/17 23:00 I spoke to the patient regarding his x-ray results and I showed him the right clavicle with the Invanz overriding each other and every time he tries to use that right shoulder he moves that clavicle fracture and causes pain and he needs to be in a sling is up but he may take it off at night when he sleeps. I cautioned him with gentle activity to help these ribs heal and to follow-up with Dr. Powell as scheduled. Departure - Departure Time of Disposition: 23:01 Disposition: Home, Self-Care 01 Condition: Fair Clinical Impression: Multiple fractures of ribs, right side, subsequent encounter for fracture with delayed healing, Pleural effusion, right Closed right clavicular fracture Qualifiers: Encounter type: initial encounter Clavicle location: shaft Fracture alignment: displaced Qualified Code(s): S42.021A - Displaced fracture of shaft of right clavicle, initial encounter for closed fracture Sprain of right shoulder Qualifiers: Encounter type: initial encounter Shoulder sprain type: unspecified sprain Qualified Code(s): S43.401A - Unspecified sprain of right shoulder joint, initial encounter Contusion of lung Qualifiers: Encounter type: initial encounter Laterality: right Qualified Code(s): S27.321A - Contusion of lung, unilateral, initial encounter - Discharge Information Referrals: Jakub Bruno MD [Primary Care Provider] - Polo Powell MD [Physician] - Forms: ED Department Discharge Additional Instructions: Use the sling at all times when you were up and moving around, this allows the clavicle to stay in one place and begin to heal rather than moving when you're trying to move your right arm, take the medicines as needed for pain, gentle activity due to the right rib fractures, follow-up with Dr. Powell as scheduled, return to the ER if needed - My Orders Last 24 Hours: My Active Orders 06/10/17 22:23 Chest 2V [CR] Stat 06/10/17 22:24 Shoulder Comp Rt [CR] Stat 06/10/17 22:58 Communication Order [RC] STAT - Assessment/Plan Last 24 Hours: My Active Orders 06/10/17 22:23 Chest 2V [CR] Stat 06/10/17 22:24 Shoulder Comp Rt [CR] Stat 06/10/17 22:58 Communication Order [RC] STAT
--- NOTE | 2017-06-13 08:33 | CR ---
Chest: Two views of the chest were obtained. Comparison: Prior chest x-ray of 06/02/17. Heart size and mediastinum are within normal limits. Small right sided pleural effusion/thickening is seen. Lungs otherwise are clear. Previous right shoulder surgery is noted. Multiple right-sided rib fractures are seen which are subacute in nature. Stable right clavicle fracture is also noted. Impression: 1. Small nonspecific right sided pleural effusion, this may also represent development of pleural thickening from previous rib fractures. 2. Right clavicle fracture which is stable. Other incidental notes. Diagnostic code #3
--- NOTE | 2017-06-13 08:33 | CR ---
Right shoulder: Three views of the right shoulder were obtained. Multiple subacute right-sided rib fracture. Clavicle fracture is noted which is also stable. Glenohumeral joint appears within normal limits. Acromioclavicular joint appears within normal limits. Prior surgery is noted. Impression: 1. Subacute right-sided rib fractures and subacute right clavicle fracture. 2. Prior surgery within the humeral head. 3. Nothing acute is seen on right shoulder study. Diagnostic code #3
== END 2017-06-10 23:13 | disposition home or self-care (01) ==
LOC: JD.ED 21:51
DX: S42.021A Displaced fracture of shaft of right clavicle, initial encounter for closed fracture (principal); S27.321A Contusion of lung, unilateral, initial encounter; S22.41XG Multiple fractures of ribs, right side, subsequent encounter for fracture with delayed healing; J90 Pleural effusion, not elsewhere classified; I10 Essential (primary) hypertension; F17.210 Nicotine dependence, cigarettes, uncomplicated; E78.00 Pure hypercholesterolemia, unspecified; Z79.899 Other long term (current) drug therapy; W17.89XA Other fall from one level to another, initial encounter
CPT/HCPCS: 71020; 71020-26; 73030-26-RT; 73030-RT; 99283

== ENCOUNTER 2022-07-14 06:08 | Day surgery (SDC) | payer MEDICARE, OTHER ==
[~2022-07-14 06:08] MED LIST: Acetaminophen 325 MG Tab PO SCH; Lactated Ringers 1,000 ML IV SCH; Lidocaine 1%/Sod Bicarbonate in NS 8.4% 1 ML Syringe IDERM PRN; Pregabalin 25 MG Cap PO SCH; Sodium Chloride 0.9% 10 ML Syringe FLUSH PRN; Sodium Chloride 0.9% 10 ML Syringe FLUSH SCH; oxyCODONE ER 10 MG TAB.ER PO SCH
[2022-07-14] MEDS ORDERED: Vancomycin 1 GM SDV ONE (06:48)
[2022-07-14] MEDS ORDERED: Tranexamic Acid 1,000 MG/10 ML Vial ONE (06:48)
[2022-07-14 07:12] VITALS: BP 137/101; PULSE 85
== END 2022-07-14 07:07 | disposition home or self-care (01) ==
LOC: JD.SDS 06:08
PROVIDERS: ATTEND Orthopaedic Surgery
DX: Z53.09 Procedure and treatment not carried out because of other contraindication (principal)
CPT/HCPCS: A9270; J7120; J3370; J3490

== ENCOUNTER 2022-07-19 09:25 | Day surgery (SDC) | payer MEDICARE, OTHER ==
[2022-07-19] MEDS ORDERED: Dexmedetomidine 200 MCG/2 ML SDV ONE (09:38)
[2022-07-19] MEDS ORDERED: EPINEPHrine 1 MG/ML SDV ONE (09:41)
[2022-07-19] MEDS ORDERED: Ropivacaine 0.5% 5 MG/ML 30 ML SDV ONE (09:41)
[2022-07-19] MEDS ORDERED: Tranexamic Acid 1,000 MG/10 ML Vial ONE (09:47)
[2022-07-19] MEDS ORDERED: Vancomycin 1 GM SDV ONE (09:47)
[2022-07-19] MEDS ORDERED: Midazolam 1 MG/ML 2 ML SDV ONE (09:55)
[2022-07-19] MEDS ORDERED: fentaNYL 100 MCG/2 ML SDV ONE ×2 (09:56→11:10)
[2022-07-19] MEDS ORDERED: Lidocaine 1% 4 ML ONE (10:24)
[2022-07-19] MEDS ORDERED: Propofol 200 MG/20 ML SDV ONE (10:24)
[2022-07-19] MEDS ORDERED: ceFAZolin 2 GM Vial ONE (10:24)
[2022-07-19] MEDS ORDERED: Rocuronium 50 MG/5 ML Vial ONE (10:24)
[2022-07-19] MEDS ORDERED: Ketorolac 30 MG/ML SDV ONE (10:25)
[2022-07-19] MEDS ORDERED: Ondansetron 4 MG/2 ML SDV ONE (10:25)
[2022-07-19] MEDS ORDERED: HYDROmorphone 0.5 MG/0.5 ML Syringe ONE (11:10)
[2022-07-19] MEDS ORDERED: Lactated Ringers 1,000 ML ONE (11:33)
[2022-07-19] MEDS ORDERED: Acetaminophen/HYDROcodone 325-5 MG Tab PO PRN (13:33)
[2022-07-19] MEDS ORDERED: HYDROmorphone 0.5 MG/0.5 ML Syringe IVPUSH PRN (13:46)
[2022-07-19] MEDS ORDERED: fentaNYL 100 MCG/2 ML SDV IVPUSH PRN (13:46)
[2022-07-19] MEDS ORDERED: Ondansetron 4 MG/2 ML SDV IVPUSH PRN (13:46)
[2022-07-19 16:08] VITALS: BP 120/74; PULSE 80
== END 2022-07-19 16:03 | disposition home or self-care (01) ==
LOC: JD.SDS 09:25
PROVIDERS: ATTEND Orthopaedic Surgery
DX: M19.012 Primary osteoarthritis, left shoulder (principal); I10 Essential (primary) hypertension; E78.00 Pure hypercholesterolemia, unspecified; F41.9 Anxiety disorder, unspecified; Z98.890 Other specified postprocedural states; Z87.891 Personal history of nicotine dependence; Z79.899 Other long term (current) drug therapy; Z79.82 Long term (current) use of aspirin
CPT/HCPCS: 23472; 64415; 73020; 76000; 97166; 97530; A9270; C1713; C1769; C1776; J0171; J0690; J1170; J1885; J2250; J2405; J2704; J2795; J3010; J3370; J7120; 01638; J3490

== ENCOUNTER 2022-07-24 16:32 | Emergency (ER) | payer MEDICARE, OTHER ==
[2022-07-24 16:50] VITALS: BP 136/100; PULSE 99
== END 2022-07-24 18:58 | disposition home or self-care (01) ==
LOC: JD.ED 16:32
DX: R20.2 Paresthesia of skin (principal); E78.00 Pure hypercholesterolemia, unspecified; I10 Essential (primary) hypertension; Z79.899 Other long term (current) drug therapy; Z79.82 Long term (current) use of aspirin
CPT/HCPCS: 36415; 70450; 70450-26; 72131; 72131-26; 80053; 85025; 99284

== ENCOUNTER → 2023-03-16 | Day surgery (SDC) | payer MEDICARE, OTHER ==
[~2023-03-16] MED LIST changes: -Acetaminophen 325 MG Tab PO SCH; +Acetaminophen/HYDROcodone 325-5 MG Tab PO PRN; +Bupivacaine 0.25% 10 ML SDV ONE; +Dexamethasone 4 MG/ML 5 ML MDV ONE; +Dexmedetomidine 200 MCG/2 ML SDV ONE; +EPINEPHrine 1 MG/ML SDV ONE; +HYDROmorphone 0.5 MG/0.5 ML Syringe IVPUSH PRN; +Ketorolac 15 MG/ML SDV ONE; +Lactated Ringers 1,000 ML ONE; +Lidocaine 1% 5 ML VIAL ONE; -Lidocaine 1%/Sod Bicarbonate in NS 8.4% 1 ML Syringe IDERM PRN; +Midazolam 1 MG/ML 2 ML SDV ONE; +Morphine 8 MG, EPINEPHrine 0.3 MG, Cefuroxime 750 MG, Ketorolac 30 MG, Sodium Chloride ... PRN; +Ondansetron 4 MG/2 ML SDV IVPUSH PRN; +Phenylephrine 1% 10 MG/ML SDV ONE; -Pregabalin 25 MG Cap PO SCH; +Propofol 200 MG/20 ML SDV ONE; +Ropivacaine 0.5% 5 MG/ML 30 ML SDV ONE; +Tranexamic Acid 1,000 MG/10 ML Vial ONE; +Triamcinolone Acetonide 40 MG/ML 1 ML SDV ONE; +Vancomycin 1 GM SDV ONE; +ceFAZolin 2 GM Vial ONE; +ePHEDrine 50 MG/ML SDV ONE; +fentaNYL 100 MCG/2 ML SDV IVPUSH PRN; +fentaNYL 100 MCG/2 ML SDV ONE; -oxyCODONE ER 10 MG TAB.ER PO SCH
[2023-03-16 15:42] VITALS: PULSE 86
[2023-03-16 16:03] VITALS: BP 131/92
== END | disposition home or self-care (01) ==
LOC: JD.SDS 08:55
PROVIDERS: ATTEND Orthopaedic Surgery
DX: M17.0 Bilateral primary osteoarthritis of knee (principal); I10 Essential (primary) hypertension; E78.00 Pure hypercholesterolemia, unspecified; Z90.49 Acquired absence of other specified parts of digestive tract; F17.210 Nicotine dependence, cigarettes, uncomplicated; Z79.899 Other long term (current) drug therapy; Z90.89 Acquired absence of other organs
CPT/HCPCS: 01402; 64447; 73560-26-LT; 73560-LT; 97110-GP; 97116-GP; 97161-GP; A9270-GY; C1713; C1776; J0171; J0690; J0697; J1100; J1885; J2250; J2270; J2371; J2704; J2795; J3010; J3301; J3370; J3490; J7030; J7120

== ENCOUNTER 2023-07-16 17:22 | Emergency (ER) | payer MEDICARE, OTHER ==
[2023-07-16 19:54] VITALS: BP 146/101; PULSE 83
== END 2023-07-16 19:42 | disposition home or self-care (01) ==
LOC: JD.ED 17:22
DX: M46.1 Sacroiliitis, not elsewhere classified (principal); I10 Essential (primary) hypertension; E78.00 Pure hypercholesterolemia, unspecified; Z90.49 Acquired absence of other specified parts of digestive tract; Z79.82 Long term (current) use of aspirin; Z79.899 Other long term (current) drug therapy
CPT/HCPCS: 73502-26-LT; 73502-LT; 99283

== ENCOUNTER 2024-02-16 07:15 | Day surgery (SDC) | payer MEDICARE ==
[~2024-02-16 07:15] MED LIST changes: -Acetaminophen/HYDROcodone 325-5 MG Tab PO PRN; -Bupivacaine 0.25% 10 ML SDV ONE; -Dexamethasone 4 MG/ML 5 ML MDV ONE; -Dexmedetomidine 200 MCG/2 ML SDV ONE; -EPINEPHrine 1 MG/ML SDV ONE; -HYDROmorphone 0.5 MG/0.5 ML Syringe IVPUSH PRN; -Ketorolac 15 MG/ML SDV ONE; -Lactated Ringers 1,000 ML IV SCH; -Lactated Ringers 1,000 ML ONE; -Lidocaine 1% 5 ML VIAL ONE; -Midazolam 1 MG/ML 2 ML SDV ONE; -Ondansetron 4 MG/2 ML SDV IVPUSH PRN; -Phenylephrine 1% 10 MG/ML SDV ONE; -Propofol 200 MG/20 ML SDV ONE; -Ropivacaine 0.5% 5 MG/ML 30 ML SDV ONE; -Tranexamic Acid 1,000 MG/10 ML Vial ONE; -Triamcinolone Acetonide 40 MG/ML 1 ML SDV ONE; -Vancomycin 1 GM SDV ONE; -ceFAZolin 2 GM Vial ONE; -ePHEDrine 50 MG/ML SDV ONE; -fentaNYL 100 MCG/2 ML SDV IVPUSH PRN; -fentaNYL 100 MCG/2 ML SDV ONE
[2024-02-16] MEDS: Lactated Ringers 1,000 ML IV SCH (07:30)
[2024-02-16] MEDS ORDERED: Lidocaine 1% 5 ML VIAL ONE (07:41)
[2024-02-16] MEDS ORDERED: fentaNYL 100 MCG/2 ML SDV ONE (07:41)
[2024-02-16] MEDS ORDERED: ceFAZolin 2 GM Vial ONE (07:41)
[2024-02-16] MEDS ORDERED: Propofol 200 MG/20 ML SDV ONE ×3 (07:41)
[2024-02-16] MEDS ORDERED: Midazolam 1 MG/ML 2 ML SDV ONE (07:41)
[2024-02-16] MEDS ORDERED: HYDROmorphone 0.5 MG/0.5 ML Syringe IVPUSH PRN (07:54)
[2024-02-16] MEDS ORDERED: Ondansetron 4 MG/2 ML SDV IVPUSH PRN (07:54)
[2024-02-16] MEDS ORDERED: fentaNYL 100 MCG/2 ML SDV IVPUSH PRN (07:54)
[2024-02-16] MEDS: oxyCODONE ER 10 MG TAB.ER PO ONE (08:16)
[2024-02-16] MEDS: Acetaminophen 325 MG Tab PO ONE (08:17)
[2024-02-16] MEDS: Pregabalin 25 MG Cap PO ONE (08:17)
[2024-02-16] MEDS ORDERED: EPINEPHrine 1 MG/ML SDV ONE (08:31)
[2024-02-16] MEDS ORDERED: Ropivacaine 0.5% 5 MG/ML 30 ML SDV ONE (08:31)
[2024-02-16] MEDS ORDERED: Dexamethasone 4 MG/ML 5 ML MDV ONE (08:31)
[2024-02-16] MEDS ORDERED: Lactated Ringers 1,000 ML ONE ×2 (08:50→10:11)
[2024-02-16] MEDS ORDERED: ePHEDrine 50 MG/ML SDV ONE (09:16)
[2024-02-16] MEDS ORDERED: Phenylephrine 1% 10 MG/ML SDV ONE (09:26)
[2024-02-16] MEDS: Morphine 8 MG, EPINEPHrine 0.3 MG, Cefuroxime 750 MG, Ketorolac 30 MG, Sodium Chloride ... PRN (10:12)
[2024-02-16] MEDS: Vancomycin 1 GM SDV ONE (10:18)
[2024-02-16] MEDS: Tranexamic Acid 1,000 MG/10 ML Vial ONE (10:18)
[2024-02-16] MEDS ORDERED: dexmedeTOMIDine HCl 200 MCG/2 ML SDV ONE (10:27)
[2024-02-16] MEDS ORDERED: Ketorolac 15 MG/ML SDV ONE (10:45)
[2024-02-16 14:02] VITALS: BP 102/78; PULSE 72
== END 2024-02-16 14:35 | disposition home or self-care (01) ==
LOC: JD.SDS 07:15
PROVIDERS: ATTEND Orthopaedic Surgery
DX: M17.11 Unilateral primary osteoarthritis, right knee (principal); I10 Essential (primary) hypertension; E78.00 Pure hypercholesterolemia, unspecified; Z87.891 Personal history of nicotine dependence; Z79.82 Long term (current) use of aspirin; Z79.899 Other long term (current) drug therapy
CPT/HCPCS: 0055T; 27447; 64447; 73560; 97110; 97161; A9270; C1713; C1776; J0171; J0690; J0697; J1100; J1885; J2250; J2270; J2371; J2704; J2795; J3010; J3370; J7120; 01402; J3490

== ENCOUNTER 2024-02-17 21:20 | Emergency (ER) | payer MEDICARE ==
[2024-02-17 21:27] VITALS: BP 161/100; PULSE 98
[2024-02-17] MEDS: Ketorolac 60 MG/2 ML SDV IM ONE (22:32)
== END 2024-02-17 22:43 | disposition home or self-care (01) ==
LOC: JD.ED 21:20
DX: M25.561 Pain in right knee (principal); G89.18 Other acute postprocedural pain; I10 Essential (primary) hypertension; E78.00 Pure hypercholesterolemia, unspecified; Z90.49 Acquired absence of other specified parts of digestive tract; Z79.899 Other long term (current) drug therapy; W18.30XA Fall on same level, unspecified, initial encounter
CPT/HCPCS: 73562; 96372; 99284; J1885; 99283